=== PATIENT | female | born 1995 | race Caucasian/White ===

== ENCOUNTER 2017-08-31 11:36 | Emergency (ER) | payer OTHER ==
[~2017-08-31] VITALS: Ht 167.6 cm; Wt 69.5 kg
[2017-08-31 11:43] VITALS: TEMP 97.6
[2017-08-31] MEDS ORDERED: PRENATAL (11:46)
[2017-08-31 13:02] VITALS: PULSE 76
[2017-08-31 13:04] LABS: MUCOUS Present /lpf; PH 6 (5-8); URINE APPEARANCE Hazy; URINE BACTERIA None Seen /hpf; URINE BILIRUBIN Negative (NEGATIVE); URINE BLOOD Negative (NEGATIVE); URINE COLOR Amber; URINE GLUCOSE Negative (NEGATIVE); URINE KETONE Negative (NEGATIVE); URINE LEUKOCYTE ESTERASE Negative (NEGATIVE); URINE PROTEIN(semi-quant) 1+ (NEGATIVE); URINE UROBILINOGEN >=4.0 mg/dL (NEGATIVE)
[2017-08-31 13:11] LABS: COLLECTION METHOD CLEAN CATCH
[2017-08-31 13:48] VITALS: BP 106/71
== END 2017-08-31 13:47 | disposition home or self-care (01) ==
LOC: COL.ER 11:36
PROVIDERS: Emergency Medicine
DX: O26.892 Other specified pregnancy related conditions, second trimester (principal); R55 Syncope and collapse; Z3A.15 15 weeks gestation of pregnancy

== ENCOUNTER 2017-09-18 04:59 | Emergency (ER) | payer OTHER ==
[~2017-09-18] VITALS: Ht 167.6 cm; Wt 70.4 kg
[~2017-09-18 04:59] MED LIST: PRENATAL
[2017-09-18 05:06] VITALS: TEMP 98.1
[2017-09-18 05:46] LABS: COLLECTION METHOD CLEAN CATCH
[2017-09-18 05:55] LABS: MUCOUS Present /lpf; PH 5 (5-8); URINE APPEARANCE Cloudy; URINE BACTERIA Rare /hpf; URINE BILIRUBIN Negative (NEGATIVE); URINE BLOOD Negative (NEGATIVE); URINE COLOR Yellow; URINE GLUCOSE Negative (NEGATIVE); URINE KETONE Negative (NEGATIVE); URINE LEUKOCYTE ESTERASE Negative (NEGATIVE); URINE PROTEIN(semi-quant) Negative (NEGATIVE)
[2017-09-18 07:07] LABS: BASO # 0.1 (0.0-0.2); BASO % 0.4 % (0.0-2.0); EOS # 0.2 (0.0-0.7); EOS % 1.2 % (0-4.0); GRAN # 10.6 (1.4-6.5); HEMATOCRIT 36.7 % (37.0-47.0); HEMOGLOBIN 12.9 g/dl (12.5-16.0); LYMPH # 1.9 (1.2-3.4); LYMPH % 14.1 % (20.0-51.0); MEAN CELL VOLUME 93 fl (80.0-100.0); MEAN CORPUSCULAR HEMOGLOBIN 33 pg (27.0-31.0); MEAN CORPUSCULAR HGB CONC 35 g/dl (33.0-37.0); MEAN PLATELET VOLUME 9.7 fl (7.4-10.4); MONO # 0.7 (0.1-0.6); MONO % 4.9 % (1.7-9.3); PLATELET COUNT 285 K/mm3 (130-400); RED BLOOD COUNT 3.93 M/mm3 (4.10-5.30); WHITE BLOOD COUNT 13.4 K/mm3 (4.8-10.8)
[2017-09-18 07:36] LABS: ADJUSTED CALCIUM 9.3 mg/dL (8.4-10.2); ALBUMIN 3.8 gm/dL (3.5-5.0); BILIRUBIN,TOTAL 0.5 mg/dL (0.0-1.0); CALCIUM 9.1 mg/dL (8.4-10.2); CREATININE, serum 0.59 mg/dL (0.52-1.25); POTASSIUM 3.8 mmol/L (3.4-5.0); TOTAL PROTEIN 6.5 gm/dL (6.4-8.2)
[2017-09-18] MEDS ORDERED: MACROBID 1100 MG/CAP PO (09:49)
[2017-09-18 10:10] VITALS: BP 121/64; PULSE 88
== END 2017-09-18 10:15 | disposition home or self-care (01) ==
LOC: COL.ER 04:59
PROVIDERS: Emergency Medicine
DX: O99.89 Other specified diseases and conditions complicating pregnancy, childbirth and the puerperium (principal); R10.9 Unspecified abdominal pain; Z3A.17 17 weeks gestation of pregnancy
CPT/HCPCS: J7030

== ENCOUNTER 2018-02-09 09:46 | Outpatient (CLI) | payer OTHER ==
[2018-02-09] VITALS (8 sets, daily range): BP systolic 123–142; BP diastolic 63–85; PULSE 78–102; TEMP 98.3
[~2018-02-09] VITALS: Ht 167.6 cm; Wt 94.1 kg
[~2018-02-09 09:46] MED LIST changes: +MACROBID 1100 MG/CAP PO
[2018-02-09 10:36] LABS: BASO % 0.2 % (0.0-2.0); EOS # 0.1 (0.0-0.7); GRAN # 10.6 (1.4-6.5); LYMPH # 1.5 (1.2-3.4); LYMPH % 11.6 % (20.0-51.0); MEAN CELL VOLUME 92 fl (80.0-100.0); MEAN CORPUSCULAR HGB CONC 34 g/dl (33.0-37.0); MEAN PLATELET VOLUME 9.9 fl (7.4-10.4); MONO # 0.9 (0.1-0.6); MONO % 6.6 % (1.7-9.3); PLATELET COUNT 301 K/mm3 (130-400); RED BLOOD COUNT 3.72 M/mm3 (4.10-5.30); REDCELL DISTRIBUTION WIDTH-CV 13.3 % (11.5-14.5)
[2018-02-09 10:37] LABS: HEMATOCRIT 34.2 % (37.0-47.0); HEMOGLOBIN 11.7 g/dl (12.5-16.0); MEAN CORPUSCULAR HEMOGLOBIN 31 pg (27.0-31.0)
[2018-02-09 10:44] LABS: ALBUMIN 3.2 gm/dL (3.5-5.0); BILIRUBIN,TOTAL 0.3 mg/dL (0.0-1.0); CALCIUM 9.1 mg/dL (8.4-10.2); CREATININE, serum 0.56 mg/dL (0.52-1.25); POTASSIUM 3.9 mmol/L (3.4-5.0); TOTAL PROTEIN 6.2 gm/dL (6.4-8.2)
[2018-02-09 11:16] LABS: COLLECTION METHOD CLEAN CATCH
[2018-02-09 11:24] LABS: MUCOUS Present /lpf; PH 6 (5-8); URINE APPEARANCE Hazy; URINE BACTERIA None Seen /hpf; URINE BILIRUBIN Negative (NEGATIVE); URINE BLOOD Negative (NEGATIVE); URINE COLOR Yellow; URINE GLUCOSE Negative (NEGATIVE); URINE KETONE Negative (NEGATIVE); URINE LEUKOCYTE ESTERASE Negative (NEGATIVE); URINE NITRATE Negative (NEGATIVE); URINE PROTEIN(semi-quant) 1+ (NEGATIVE); URINE RBC None Seen /hpf; URINE UROBILINOGEN Negative (NEGATIVE); URINE WBC 0-2 /hpf
== END 2018-02-09 12:10 | disposition home or self-care (01) ==
LOC: LDRO 09:46
PROVIDERS: Obstetrics & Gynecology
DX: O99.89 Other specified diseases and conditions complicating pregnancy, childbirth and the puerperium (principal); Z3A.39 39 weeks gestation of pregnancy

== ENCOUNTER 2018-02-11 14:37 | Outpatient (CLI) | payer OTHER ==
[~2018-02-11] VITALS: Ht 167.6 cm; Wt 94.1 kg
[2018-02-11 14:53] VITALS: BP 141/88; PULSE 112; TEMP 98.2
[2018-02-11 15:00] VITALS: BP 134/77; PULSE 99
[2018-02-11 15:09] LABS: BASO % 0.2 % (0.0-2.0); EOS # 0.1 (0.0-0.7); GRAN # 8.5 (1.4-6.5); GRAN % 76.5 % (42.2-75.2); LYMPH # 1.7 (1.2-3.4); LYMPH % 14.9 % (20.0-51.0); MEAN CELL VOLUME 91 fl (80.0-100.0); MEAN CORPUSCULAR HGB CONC 35 g/dl (33.0-37.0); MEAN PLATELET VOLUME 10.2 fl (7.4-10.4); MONO # 0.8 (0.1-0.6); MONO % 6.9 % (1.7-9.3); PLATELET COUNT 343 K/mm3 (130-400); RED BLOOD COUNT 3.76 M/mm3 (4.10-5.30); REDCELL DISTRIBUTION WIDTH-CV 13.2 % (11.5-14.5)
[2018-02-11 15:10] LABS: HEMATOCRIT 34.3 % (37.0-47.0); HEMOGLOBIN 11.9 g/dl (12.5-16.0); MEAN CORPUSCULAR HEMOGLOBIN 32 pg (27.0-31.0)
[2018-02-11 15:15] VITALS: BP 137/72; PULSE 116
[2018-02-11 15:17] LABS: ALBUMIN 3.3 gm/dL (3.5-5.0); BILIRUBIN,TOTAL 0.4 mg/dL (0.0-1.0); CALCIUM 8.9 mg/dL (8.4-10.2); CREATININE, serum 0.53 mg/dL (0.52-1.25); POTASSIUM 3.8 mmol/L (3.4-5.0); TOTAL PROTEIN 6.5 gm/dL (6.4-8.2)
[2018-02-11 15:30] VITALS: BP 132/71; PULSE 89
[2018-02-11 15:42] VITALS: BP 134/71; PULSE 93
== END 2018-02-11 16:00 | disposition home or self-care (01) ==
LOC: LDRO 14:37
PROVIDERS: Obstetrics & Gynecology
DX: O99.89 Other specified diseases and conditions complicating pregnancy, childbirth and the puerperium (principal); Z3A.38 38 weeks gestation of pregnancy

== ENCOUNTER 2018-02-16 17:05 | Outpatient (CLI) | payer OTHER ==
[~2018-02-16] VITALS: Ht 167.6 cm; Wt 95.9 kg
[2018-02-16 17:14] VITALS: BP 139/86; PULSE 104; TEMP 98
[2018-02-16 17:50] VITALS: BP 139/86; PULSE 107; TEMP 98
[2018-02-16 18:15] VITALS: BP 141/82; PULSE 96
[2018-02-16 19:15] VITALS: BP 125/74; PULSE 94; TEMP 98
[2018-02-17] MEDS ORDERED: MOTRIN 800800 MG/TAB PO (12:32)
[2018-02-17] MEDS ORDERED: PERCOCET 325 MG1 TA2 PO (12:32)
== END 2018-02-16 19:45 ==
LOC: LDRO 17:05
DX: O62.9 Abnormality of forces of labor, unspecified (principal); Z3A.39 39 weeks gestation of pregnancy

== ENCOUNTER 2018-02-16 22:49 | Inpatient (IN) | payer OTHER ==
[~2018-02-16] VITALS: Ht 167.6 cm; Wt 95.9 kg
[2018-02-16 23:10] VITALS: BP 137/80; PULSE 95; TEMP 98.7
[2018-02-17] VITALS (40 sets, daily range): BP systolic 11–146; BP diastolic 51–93; PULSE 72–116; TEMP 97.6–98.8
[2018-02-17 01:28] LABS: BASO # 0.1 (0.0-0.2); BASO % 0.3 % (0.0-2.0); EOS # 0.1 (0.0-0.7); EOS % 0.8 % (0-4.0); GRAN # 14.2 (1.4-6.5); GRAN % 82.4 % (42.2-75.2); LYMPH # 1.6 (1.2-3.4); LYMPH % 9.2 % (20.0-51.0); MEAN CELL VOLUME 90 fl (80.0-100.0); MEAN CORPUSCULAR HGB CONC 35 g/dl (33.0-37.0); MEAN PLATELET VOLUME 10.2 fl (7.4-10.4); MONO # 1.2 (0.1-0.6); MONO % 6.8 % (1.7-9.3); PLATELET COUNT 300 K/mm3 (130-400); RED BLOOD COUNT 3.57 M/mm3 (4.10-5.30); REDCELL DISTRIBUTION WIDTH-CV 13.2 % (11.5-14.5)
[2018-02-17 01:29] LABS: HEMATOCRIT 32.1 % (37.0-47.0); HEMOGLOBIN 11.1 g/dl (12.5-16.0); MEAN CORPUSCULAR HEMOGLOBIN 31 pg (27.0-31.0)
[2018-02-17] MEDS ORDERED: MOTRIN 800800 MG/TAB PO (12:32)
[2018-02-17] MEDS ORDERED: PERCOCET 325 MG1 TA2 PO (12:32)
[2018-02-18 04:15] VITALS: BP 113/74; BP 133/75; PULSE 101; PULSE 104; TEMP 97.3; TEMP 97.5
[2018-02-18 08:55] VITALS: BP 134/76; PULSE 105; TEMP 97.8
[2018-02-18 12:20] VITALS: BP 136/74; PULSE 99; TEMP 98.2
[2018-02-18 16:00] VITALS: BP 137/82; PULSE 93; TEMP 98.1
[2018-02-18 20:04] VITALS: BP 120/66; PULSE 88; TEMP 97.9
[2018-02-19 04:30] VITALS: BP 128/82; PULSE 86; TEMP 98
[2018-02-19 09:10] VITALS: BP 136/70; PULSE 100; TEMP 98.7
== END 2018-02-19 12:15 | disposition home or self-care (01) | DRG 775 ==
LOC: LDRO 22:49 → LDR 23:44 → OB 23:44
PROVIDERS: Obstetrics & Gynecology
PROC: 10E0XZZ Delivery of Products of Conception, External Approach (ICD-10-PCS; principal; 2018-02-17)
PROC: 0KQM0ZZ Repair Perineum Muscle, Open Approach (ICD-10-PCS; 2018-02-17)
DX: O70.1 Second degree perineal laceration during delivery (principal); Z37.0 Single live birth; Z3A.39 39 weeks gestation of pregnancy; O69.81X0 Labor and delivery complicated by cord around neck, without compression, not applicable or unspecified; O99.343 Other mental disorders complicating pregnancy, third trimester; F41.8 Other specified anxiety disorders; Z23 Encounter for immunization
CPT/HCPCS: J2590; J2795; J7120